=== PATIENT | female | born 1935 | race Caucasian/White ===

== ENCOUNTER 2021-07-27 00:23 | Inpatient (IN) ==
[2021-07-27] MEDS ORDERED: KETOROLAC 30 MG/1 ML VIAL ONE (01:00)
[2021-07-27] MEDS ORDERED: KETOROLAC 30 MG/1 ML VIAL IV STA (01:08)
[2021-07-27 01:18] LABS: Basophils % 0.2 % (0.0-0.8); Eosinophils % 0.1 % (0.00-10.9); Hematocrit 31.9 VOL% (35.7-47.0); Hemoglobin 9.9 GM/DL (12.0-16.0); Immature Granulocytes % 1.2 %; Immature Granulocytes Absolute 0.12 #; Lymphocytes % 19.5 % (21.3-54.2); Mean Corpuscular Volume 89.9 FL (87-102); Mean Platelet Volume 8.7 FL (9.6-12.0); Monocytes % 9.4 % (1.7-12.7); Neutrophils % 69.6 % (38.7-73.9); Platelet Count 186 T/CUMM (130-400); Red Blood Count 3.55 MC/CUMM (3.8-5.5); Red Cell Distribution Width 17.6 % (9.3-17.3)
[2021-07-27 01:36] LABS: Calcium 8.6 MG/DL (8.5-10.1); Osmolality,Calculated 272.7 MOS/KG (273-304); Potassium 3.4 MMOL/L (3.5-5.1)
[2021-07-27] MEDS ORDERED: ACETAMINOPHEN 325 MG TABLET PO PRN (02:43)
[2021-07-27] MEDS ORDERED: ONDANSETRON 4 MG/2 ML VIAL IV PRN (02:43)
[2021-07-27] MEDS ORDERED: SIMETHICONE CHEW 125 MG TABLET PO PRN (02:43)
[2021-07-27] MEDS ORDERED: GLUCAGON 1 MG VIAL IM PRN (02:43)
[2021-07-27] MEDS ORDERED: MORPHINE 2 MG/1 ML SYRINGE IV PRN (02:58)
[2021-07-27] MEDS ORDERED: DEXTROSE 10% 250 ML BAG IV PRN (03:00)
[2021-07-27] MEDS ORDERED: POTASSIUM CHLORIDE RIDER 10 MEQ/100 ML PREMIX IV PRN (03:10)
[2021-07-27] MEDS ORDERED: POTASSIUM CHLORIDE 20 MEQ TABLET PO STA (03:10)
[2021-07-27] MEDS ORDERED: MAGNESIUM SULF RIDER 2 GM/50 ML PREMIX IV PRN (03:10)
[2021-07-27] MEDS ORDERED: MAGNESIUM SULF RIDER 4 GM/100 ML PREMIX IV PRN (03:10)
[2021-07-27] MEDS ORDERED: POTASSIUM CHLORIDE 20 MEQ TABLET PO PRN (03:10)
[2021-07-27] MEDS ORDERED: MELATONIN 3 MG TABLET PO PRN (03:12)
[2021-07-27 03:25] LABS: PT Patient Result 11.3 SECS (10.5-12.0)
[2021-07-27 05:23] LABS: Basophils % 0.2 % (0.0-0.8); Hematocrit 31.1 VOL% (35.7-47.0); Hemoglobin 9.8 GM/DL (12.0-16.0); Immature Granulocytes Absolute 0.13 #; Lymphocytes # 2.5 10*3/uL (1.4-4.0); Lymphocytes % 19.9 % (21.3-54.2); Mean Corpuscular HGB Conc 31.5 GM/DL (32-36); Mean Corpuscular Volume 89.9 FL (87-102); Mean Platelet Volume 8.9 FL (9.6-12.0); Monocytes % 6.5 % (1.7-12.7); Neutrophils % 72.4 % (38.7-73.9); Platelet Count 189 T/CUMM (130-400); Red Blood Count 3.46 MC/CUMM (3.8-5.5); Red Cell Distribution Width 17.6 % (9.3-17.3); White Blood Count 12.6 T/CUMM (4-12)
[2021-07-27 05:47] LABS: Folate 8.55 NG/ML (5.38-24.0); Vitamin B12 376 PG/ML (211-911)
[2021-07-27] MEDS: LEVOTHYROXINE 88 MCG TABLET PO SCH (06:30)
[2021-07-27 06:40] LABS: Sedimentation Rate-Westergren 111 MM/HR (0-30)
[2021-07-27] MEDS ORDERED: lisinopriL 10 MG TABLET PO SCH (09:00)
[2021-07-27] MEDS ORDERED: METOPROLOL TARTRATE 25 MG TABLET PO SCH (09:00)
[2021-07-27] MEDS: CITALOPRAM 20 MG TABLET PO SCH (09:51)
[2021-07-27] MEDS: PANTOPRAZOLE 40 MG TABLET PO SCH (09:51)
[2021-07-27] MEDS: GABAPENTIN 600 MG TABLET PO SCH ×4 (09:51→21:25)
[2021-07-27] MEDS: DOCUSATE SODIUM 100 MG CAPSULE PO SCH ×2 (09:52→21:24)
[2021-07-27] MEDS: INSULIN REGULAR 100 UNIT/ML SUBCUT SCH ×4 (10:09→21:28)
[2021-07-27] MEDS: INSULIN NPH/REGULAR 70/30 100 UNIT/ML SUBCUT SCH ×2 (10:10→21:26)
[2021-07-27] MEDS ORDERED: DEXTROSE 50% 25 GM/50 ML VIAL IV PRN (11:04)
[2021-07-27 11:14] LABS: Albumin 2.6 G/DL (3.4-5.0); Bilirubin,Total 0.4 MG/DL (0.20-1.00); Calcium 7.9 MG/DL (8.5-10.1); Potassium 4.4 MMOL/L (3.5-5.1); Total Protein 6.5 G/DL (6.4-8.2)
[2021-07-27] MEDS: ALBUTEROL/IPRATROPIUM 3 ML NEB RESP TX SCH ×3 (11:23→19:40)
[2021-07-27 12:20] LABS: Bilirubin,Urine Negative (Negative); Blood, Urine Negative (Negative); Glucose,Urine (UA) Negative (Negative); Ketones,Urine Trace mg/dL (Negative); Mucus,Urine Occasional /LPF (Occasional); Nitrite,Urine Negative (Negative); Protein,Urine Trace mg/dL (Negative); RBC,Urine 2 /HPF (0-4); Squamous Epithelial Cell,Urine Few /HPF (0-10); Urine Appearance Cloudy (Clear); Urine Color Yellow (Yellow); Urine Specific Gravity 1.015 (1.001-1.035); Urine Urobilinogen 0.2 eU/dL (<2.0); Urine pH 5.5 (4.5-8.0)
[2021-07-27] MEDS ORDERED: MAGNESIUM SULF RIDER 2 GM/50 ML PREMIX IV ONE (14:32)
[2021-07-27] MEDS: methylPREDNISolone SOD SUC 40 MG/1 ML VIAL IV SCH ×2 (15:36→23:27)
[2021-07-27] MEDS: SODIUM CHLORIDE 0.45% 1,000 ML IV SCH (17:18)
[2021-07-28] MEDS: SODIUM CHLORIDE 0.45% 1,000 ML IV SCH ×3 (01:47→13:36)
[2021-07-28] MEDS: ALBUTEROL/IPRATROPIUM 3 ML NEB RESP TX SCH ×5 (04:53→19:50)
[2021-07-28 05:00] LABS: Basophils % 0.2 % (0.0-0.8); Hematocrit 29.2 VOL% (35.7-47.0); Hemoglobin 9.2 GM/DL (12.0-16.0); Immature Granulocytes % 1.5 %; Lymphocytes # 0.9 10*3/uL (1.4-4.0); Lymphocytes % 14.5 % (21.3-54.2); Mean Corpuscular HGB Conc 31.5 GM/DL (32-36); Mean Corpuscular Volume 89.3 FL (87-102); Mean Platelet Volume 9.4 FL (9.6-12.0); Monocytes % 1.1 % (1.7-12.7); Neutrophils % 82.7 % (38.7-73.9); Platelet Count 186 T/CUMM (130-400); Red Blood Count 3.27 MC/CUMM (3.8-5.5); Red Cell Distribution Width 17.6 % (9.3-17.3); White Blood Count 6.5 T/CUMM (4-12)
[2021-07-28 05:26] LABS: Albumin 2.5 G/DL (3.4-5.0); Bilirubin,Total 0.7 MG/DL (0.20-1.00); Calcium 8.4 MG/DL (8.5-10.1); Osmolality,Calculated 279.1 MOS/KG (273-304); Potassium 4.2 MMOL/L (3.5-5.1); Total Protein 7.1 G/DL (6.4-8.2)
[2021-07-28] MEDS: LEVOTHYROXINE 88 MCG TABLET PO SCH (06:06)
[2021-07-28 07:00] LABS: Calcium 8.2 MG/DL (8.5-10.1); Osmolality,Calculated 279.1 MOS/KG (273-304); Potassium 4.2 MMOL/L (3.5-5.1); Risk Ratio 3.32
[2021-07-28] MEDS: INSULIN REGULAR 100 UNIT/ML SUBCUT SCH ×4 (10:07→21:18)
[2021-07-28] MEDS: DOCUSATE SODIUM 100 MG CAPSULE PO SCH ×2 (10:07→21:18)
[2021-07-28] MEDS: GABAPENTIN 600 MG TABLET PO SCH ×4 (10:07→21:18)
[2021-07-28] MEDS: PANTOPRAZOLE 40 MG TABLET PO SCH (10:07)
[2021-07-28] MEDS: CITALOPRAM 20 MG TABLET PO SCH (10:07)
[2021-07-28] MEDS: methylPREDNISolone SOD SUC 40 MG/1 ML VIAL IV SCH ×3 (10:08→23:17)
[2021-07-28] MEDS: INSULIN NPH/REGULAR 70/30 100 UNIT/ML SUBCUT SCH ×2 (10:08→21:19)
[2021-07-28] MEDS ORDERED: LEVOFLOXACIN INJ 500 MG/100 ML PREMIX IV SCH (14:00)
[2021-07-28] MEDS: METOPROLOL TARTRATE 25 MG TABLET PO SCH ×2 (16:50→21:17)
[2021-07-28] MEDS: POLYETHYLENE GLYCOL POWDER 17 GM PACK PO SCH (16:51)
[2021-07-29] MEDS: ALBUTEROL/IPRATROPIUM 3 ML NEB RESP TX SCH ×6 (00:30→20:23)
[2021-07-29] MEDS: LEVOTHYROXINE 88 MCG TABLET PO SCH (06:01)
[2021-07-29 07:01] LABS: Basophils % 0.1 % (0.0-0.8); Hematocrit 27.3 VOL% (35.7-47.0); Hemoglobin 8.6 GM/DL (12.0-16.0); Immature Granulocytes % 1.8 %; Immature Granulocytes Absolute 0.25 #; Lymphocytes # 0.7 10*3/uL (1.4-4.0); Lymphocytes % 5.3 % (21.3-54.2); Mean Corpuscular HGB Conc 31.5 GM/DL (32-36); Mean Corpuscular Volume 88.9 FL (87-102); Mean Platelet Volume 9.3 FL (9.6-12.0); Monocytes % 2.9 % (1.7-12.7); Neutrophils % 89.9 % (38.7-73.9); Platelet Count 193 T/CUMM (130-400); Red Blood Count 3.07 MC/CUMM (3.8-5.5); Red Cell Distribution Width 17.9 % (9.3-17.3); White Blood Count 13.5 T/CUMM (4-12)
[2021-07-29 07:26] LABS: Alanine Aminotransferase 20 U/L (13-56); Albumin 2.5 G/DL (3.4-5.0); Alkaline Phosphatase 146 U/L (45-117); Aspartate Amino Transferase 47 U/L (0-37); Bilirubin,Total < 0.39 MG/DL (0.20-1.00); Blood Urea Nitrogen 16 MG/DL (7-18); Calcium 8.4 MG/DL (8.5-10.1); Carbon Dioxide 27 MMOL/L (21-32); Estimated Glom Filtration Rate 52 ML/MIN; Glucose 193 MG/DL (74-106); Osmolality,Calculated 275.1 MOS/KG (273-304); Potassium 4.1 MMOL/L (3.5-5.1); Sodium 135 MMOL/L (136-145); Total Protein 6.7 G/DL (6.4-8.2)
[2021-07-29 07:52] LABS: Calcium 8.9 MG/DL (8.5-10.1); Potassium 4.1 MMOL/L (3.5-5.1)
[2021-07-29] MEDS: GABAPENTIN 600 MG TABLET PO SCH ×4 (08:57→21:47)
[2021-07-29] MEDS: DOCUSATE SODIUM 100 MG CAPSULE PO SCH ×2 (08:57→21:47)
[2021-07-29] MEDS: POLYETHYLENE GLYCOL POWDER 17 GM PACK PO SCH (08:57)
[2021-07-29] MEDS: METOPROLOL TARTRATE 25 MG TABLET PO SCH ×2 (08:57→21:46)
[2021-07-29] MEDS: PANTOPRAZOLE 40 MG TABLET PO SCH (08:57)
[2021-07-29] MEDS: CITALOPRAM 20 MG TABLET PO SCH (08:57)
[2021-07-29] MEDS: methylPREDNISolone SOD SUC 40 MG/1 ML VIAL IV SCH ×2 (09:04→21:51)
[2021-07-29] MEDS: INSULIN REGULAR 100 UNIT/ML SUBCUT SCH ×4 (09:21→21:53)
[2021-07-29] MEDS: INSULIN NPH/REGULAR 70/30 100 UNIT/ML SUBCUT SCH ×2 (09:21→21:52)
[2021-07-29 09:34] LABS: Hemoglobin A1 (Alkaline) 97.4 % (96.5-98.5); Hemoglobin A2 (Alkaline) 2.6 % (1.5-3.5)
[2021-07-29] MEDS ORDERED: CLORAZEPATE 3.75 MG TABLET PO PRN (11:22)
[2021-07-29] MEDS: LEVOFLOXACIN INJ 250 MG/50 ML PREMIX IV SCH (15:35)
[2021-07-30] MEDS: ALBUTEROL/IPRATROPIUM 3 ML NEB RESP TX SCH ×5 (01:20→14:50)
[2021-07-30 04:45] LABS: Basophils % 0.2 % (0.0-0.8); Hematocrit 29.1 VOL% (35.7-47.0); Immature Granulocytes % 4.4 %; Immature Granulocytes Absolute 0.44 #; Lymphocytes # 0.9 10*3/uL (1.4-4.0); Lymphocytes % 8.8 % (21.3-54.2); Mean Corpuscular HGB Conc 30.9 GM/DL (32-36); Mean Corpuscular Volume 91.5 FL (87-102); Mean Platelet Volume 9.2 FL (9.6-12.0); Monocytes % 3.2 % (1.7-12.7); Neutrophils % 83.4 % (38.7-73.9); Platelet Count 194 T/CUMM (130-400); Red Blood Count 3.18 MC/CUMM (3.8-5.5); Red Cell Distribution Width 18.2 % (9.3-17.3); White Blood Count 10.1 T/CUMM (4-12)
[2021-07-30 05:05] LABS: % Iron Saturation 20.2 % (18-50); Calcium 9.2 MG/DL (8.5-10.1); Osmolality,Calculated 285.5 MOS/KG (273-304); Potassium 5.4 MMOL/L (3.5-5.1)
[2021-07-30] MEDS: LEVOTHYROXINE 88 MCG TABLET PO SCH (06:23)
[2021-07-30] MEDS: CITALOPRAM 20 MG TABLET PO SCH (09:23)
[2021-07-30] MEDS: GABAPENTIN 600 MG TABLET PO SCH ×2 (09:23→14:11)
[2021-07-30] MEDS: INSULIN REGULAR 100 UNIT/ML SUBCUT SCH ×2 (09:23→12:21)
[2021-07-30] MEDS: METOPROLOL TARTRATE 25 MG TABLET PO SCH (09:23)
[2021-07-30] MEDS: DOCUSATE SODIUM 100 MG CAPSULE PO SCH (09:23)
[2021-07-30] MEDS: PANTOPRAZOLE 40 MG TABLET PO SCH (09:23)
[2021-07-30] MEDS: INSULIN NPH/REGULAR 70/30 100 UNIT/ML SUBCUT SCH (09:24)
[2021-07-30] MEDS: methylPREDNISolone SOD SUC 40 MG/1 ML VIAL IV SCH (09:26)
[2021-07-30] MEDS: POLYETHYLENE GLYCOL POWDER 17 GM PACK PO SCH (09:27)
[2021-07-30] MEDS ORDERED: SODIUM ZIRCONIUM CYCLOSILICATE 10 GM PACK PO SCH (10:41)
[2021-07-30 14:06] VITALS: BP 129/60
[2021-07-30] MEDS: LEVOFLOXACIN INJ 250 MG/50 ML PREMIX IV SCH (14:14)
== END 2021-07-30 15:18 | disposition swing bed (61) | DRG 194 ==
LOC: EDBD → EDUNIT# → N.EDINP 00:23 → N.ED 00:23 → SUATTDRO 02:43 → N.TELES 05:49
PROVIDERS: ADMIT Phlebology; ATTEND Emergency Medicine